=== PATIENT | male | born 1955 | race Caucasian/White ===

== ENCOUNTER 2017-11-18 03:12 | Emergency (ER) | payer OTHER ==
[~2017-11-18] VITALS: Ht 180.3 cm; Wt 113.4 kg
[~2017-11-18 03:12] MED LIST: ASPIR 8181 MG PO; BRILINTA90 MG PO; COREG 25 MG TAB25 MG PO; KEFLEX500 MG PO; LIPITOR80 MG PO
--- NOTE | 2017-11-18 03:19 | ED DYSPNEA/ASTHMA COMPLAINT ---
History of Present Illness General Chief Complaint: General Adult Stated Complaint: "COUGHING UP BLOOD" Source: patient Exam Limitations: no limitations Vital Signs & Intake/Output Vital Signs & Intake/Output Vital Signs Date Time Temp Pulse Resp B/P B/P Pulse O2 O2 Flow FiO2 Mean Ox Delivery Rate 11/18 0506 98.2 62 18 132/67 95 Room Air 11/18 0317 98.0 66 18 150/79 95 Room Air Allergies Coded Allergies: NO KNOWN ALLERGIES (10/29/13) Reconcile Medications Amoxicillin/Potassium Clav (Augmentin 875-125 Tablet) 875 MG-125 MG TABLET 1 TAB PO BID BRONCHITIS Aspirin (Ecotrin) 81 MG TABLET.DR 1 TAB PO DAILY HEART HEALTH (Reported) Atorvastatin (Atorvastatin Calcium) 80 MG TABLET 80 MG PO DAILY CHOLESTEROL ( Reported) Carvedilol (Coreg) 25 MG TABLET 25 MG PO DAILY HEART (Reported) Cephalexin (Keflex) 500 MG CAP 1 TAB PO BID INFN Ticagrelor (Brilinta) 90 MG TABLET 90 MG PO DAILY BLOOD THINNER (Reported) Triage Nurses Notes Reviewed? yes Onset: Abrupt Duration: hour(s): Timing: recent history Severity: moderate Activities at Onset: none Modifying Factors: Worsens With: movement. Associated Symptoms: cough HPI: 62 yo gentleman h/o stage iv renal cell cancer, with mets to lungs presents with several episodes of hemoptysis 30 minutes prior to presentation. "But now it stopped and I feel fine... I wouldn't have come." He notes the bloody episodes are small clots, mixed with phlegm, without fever, chills, wheeze. He is tolerating his chemo well. He is otherwise well. Past History Travel History Traveled to [place] past 21 day No Medical History Any Pertinent Medical History? see below for history Respiratory: lung mets from renal cell carcinoma primary Renal: right renal call carcinoma Surgical History Surgical History: right nephrectomy 2017 Psychosocial History What is your primary language Czech Family History Hx Contributory? No Review of Systems Review of Systems Constitutional: Reports: no symptoms. EENTM: Reports: no symptoms. Respiratory: Reports: no symptoms. Cardiovascular: Reports: no symptoms. GI: Reports: no symptoms. Genitourinary: Reports: no symptoms. Musculoskeletal: Reports: no symptoms. Skin: Reports: no symptoms. Neurological/Psychological: Reports: no symptoms. Hematologic/Endocrine: Reports: no symptoms. Immunologic/Allergic: Reports: no symptoms. All Other Systems: Reviewed and Negative Physical Exam Physical Exam Respiratory: see below Comments: Physical Exam Physical Exam General Appearance: well developed/nourished, no apparent distress Head: atraumatic, normal appearance Eyes: Bilateral: normal appearance. Ears, Nose, Throat: normal pharynx, normal ENT inspection Neck: normal inspection, supple, full range of motion Respiratory: mild rhonchi on right, chest non-tender, no respiratory distress, quiet respiration, lungs clear Cardiovascular: regular rate/rhythm Gastrointestinal: normal bowel sounds, soft, non-tender, no organomegaly Back: normal inspection, normal range of motion Extremities: normal inspection, normal capillary refill, normal range of motion, no edema Neurologic/Psych: no motor/sensory deficits, awake, alert, oriented x 3 Skin: intact, normal color, warm/dry Core Measures ACS in differential dx? No CVA/TIA Diagnosis No Sepsis Present: No Sepsis Focused Exam Completed? No Progress Differential Diagnosis: asthma, bronchitis, PE vs other. Plan of Care: Orders Procedure Date/time Status PARTIAL THROMBOPLASTIN TIME 11/18 332 Complete PROTHROMBIN TIME 11/18 332 Complete TROPONIN LEVEL 11/19 331 Complete COMPREHENSIVE METABOLIC PANEL 11/18 033 Complete CBC WITHOUT DIFFERENTIAL 11/19 331 Complete EKG 11/19 331 Active Laboratory Tests 11/18/17 0413: Anion Gap 12, Estimated GFR > 60, BUN/Creatinine Ratio 13.3, Glucose 116 H, Calcium 9.8, Total Bilirubin 0.6, AST 23, ALT 46, Alkaline Phosphatase 66, Troponin I 0.02, Total Protein 6.7, Albumin 3.9, Globulin 2.8, Albumin/Globulin Ratio 1.4, PT 10.0, INR 0.92, APTT 37, CBC w Diff NO MAN DIFF REQ, RBC 4.68 L, MCV 94.4 H, MCH 31.1 H, MCHC 32.9 L, RDW 13.9, MPV 7.8, Gran % 60.0, Lymphocytes % 23.0, Monocytes % 13.1 H, Eosinophils % 3.4, Basophils % 0.5, Absolute Granulocytes 4.6, Absolute Lymphocytes 1.8, Absolute Monocytes 1.0 H, Absolute Eosinophils 0.3, Absolute Basophils 0 Diagnostic Imaging: Viewed by Me: Radiology Read. Discussed w/RAD: Radiology Read. Radiology Impression: PATIENT: STACI TOLBERT JR PRESENT AGE: 62 PATIENT ACCOUNT NO: [id number] : 54 LOCATION: [facility] ORDERING PHYSICIAN: Jim Gutierrez MD SERVICE DATE: 11/18/17 EXAM TYPE: RAD - XRY-CHEST XRAY, TWO VIEWS EXAMINATION: CHEST 2 VIEWS CLINICAL INFORMATION: Hemoptysis. COMPARISON: August 24, 2017. TECHNIQUE: PA and lateral views of the chest were obtained. FINDINGS: The cardiac silhouette is not enlarged. The mediastinal and hilar contours are unremarkable. There are neither pleural effusions nor pneumothoraces. Several nodules are again noted bilaterally. The largest on the right overlies the lower lobe measuring approximately 2 cm. The largest on the left is also present within the lower lung zone measuring approximately 1.8 cm. There are no consolidations. The osseous structures are stable. IMPRESSION: No evidence for acute airspace disease. Multiple bilateral pulmonary nodules. The largest on each side measure larger than on the prior exam, though direct comparison between plain film and CT measurements is limited. With the history of a right renal mass and presumed renal cancer, progression in suspected metastatic disease cannot be excluded. DICTATED BY: Deshaun Womack MD DATE/TIME DICTATED:11/18/17413 OPINION POLLS SURVEY WORKER:REANAN DATE/TIME TRANSCRIBED:11/18/17413 CONFIDENTIAL, DO NOT COPY WITHOUT APPROPRIATE AUTHORIZATION. <Electronically signed in Other Vendor System> SIGNED BY: Deshaun Womack MD 11/18/17 0420 Initial ED EKG: nsr, pvc, borderline left axis Departure Departure Disposition: HOME OR SELF CARE Condition: Stable Clinical Impression Primary Impression: Hemoptysis Secondary Impressions: Bronchitis Referrals: Kaveh CHIANG,Jb Bender (PCP/Family) Departure Forms: Customer Survey General Discharge Information Prescriptions: Current Visit Scripts Amoxicillin/Potassium Clav (Augmentin 875-125 Tablet) 1 TAB PO BID #20 TAB Comments 11/18/17, 5:04am... discussed at length with patient and spouse... No hemoptysis in the ED. He notes that he is feeling fine. Discussed ct scan w/ IV contrast. He declines, stating that he has only 1 kidney. He has no shortness of breath... Will give abx for possible obstructive-type bronchitis... pt will hold aspirin x 1 day (he is no longer on brilinta)... pt to return if not feeling better. Critical Care Note Critical Care Note Critical Care Time: non-applicable
[2017-11-18 04:19] LABS: ABSOLUTE BASOPHIL COUNT 0 /CUMM (0.0-0.2); ABSOLUTE EOSINOPHIL COUNT 0.3 /CUMM (0.0-0.7); ABSOLUTE GRANULOCYTE CT 4.6 /CUMM (1.4-6.5); ABSOLUTE LYMPH COUNT 1.8 /CUMM (1.2-3.4); BASOPHIL % 0.5 % (0.0-2.0); EOSINOPHIL % 3.4 % (0-5); HEMATOCRIT 44.2 % (42-52); MEAN CORPUSCULAR HGB 31.1 PG (27.0-31.0); MEAN CORPUSCULAR HGB CONC 32.9 G/DL (33.0-37.0); MEAN CORPUSCULAR VOLUME 94.4 FL (80.0-94.0); MEAN PLATELET VOLUME 7.8 FL (7.4-10.4); PLATELET COUNT 264 /CUMM (130-400); RBC DISTRIBUTION WIDTH 13.9 % (11.5-14.5); RED BLOOD CELL CT 4.68 /CUMM (4.70-6.10); WHITE BLOOD CELL COUNT 7.7 /CUMM (4.8-10.8)
--- NOTE | 2017-11-18 04:20 | RADIOLOGY REPORT ---
EXAMINATION: CHEST 2 VIEWS CLINICAL INFORMATION: Hemoptysis. COMPARISON: August 24, 2017. TECHNIQUE: PA and lateral views of the chest were obtained. FINDINGS: The cardiac silhouette is not enlarged. The mediastinal and hilar contours are unremarkable. There are neither pleural effusions nor pneumothoraces. Several nodules are again noted bilaterally. The largest on the right overlies the lower lobe measuring approximately 2 cm. The largest on the left is also present within the lower lung zone measuring approximately 1.8 cm. There are no consolidations. The osseous structures are stable. IMPRESSION: No evidence for acute airspace disease. Multiple bilateral pulmonary nodules. The largest on each side measure larger than on the prior exam, though direct comparison between plain film and CT measurements is limited. With the history of a right renal mass and presumed renal cancer, progression in suspected metastatic disease cannot be excluded.
[2017-11-18] MEDS ORDERED: AUGMENTIN 875-1 EACH PO (04:35)
[2017-11-18 04:36] LABS: PTT 37 SEC (25-37)
[2017-11-18 05:06] VITALS: BP 132/67
== END 2017-11-18 05:12 ==
LOC: ERH 03:12
PROVIDERS: Pediatrics
DX: R04.2 Hemoptysis (principal); J40 Bronchitis, not specified as acute or chronic
CPT/HCPCS: 71046; 93005; 93010; J3490

== ENCOUNTER 2017-12-18 13:15 | Observation (INO) | payer OTHER ==
[~2017-12-18] VITALS: Ht 180.3 cm; Wt 117.9 kg
[~2017-12-18 13:15] MED LIST changes: +AUGMENTIN 875-1 EACH PO
--- NOTE | 2017-12-18 13:22 | ED NEURO DEFICIT/STROKE ---
History of Present Illness General Chief Complaint: General Adult Stated Complaint: BIBA STROKE ALERT Source: EMS, Exam Limitations: clinical condition Vital Signs & Intake/Output Vital Signs & Intake/Output Vital Signs Date Time Temp Pulse Resp B/P B/P Pulse O2 O2 Flow FiO2 Mean Ox Delivery Rate 12/18 1333 98.3 68 20 158/77 96 Room Air Allergies Coded Allergies: NO KNOWN ALLERGIES (10/29/13) Reconcile Medications Amoxicillin/Potassium Clav (Augmentin 875-125 Tablet) 875 MG-125 MG TABLET 1 TAB PO BID BRONCHITIS Aspirin (Ecotrin) 81 MG TABLET.DR 1 TAB PO DAILY HEART HEALTH (Reported) Atorvastatin (Atorvastatin Calcium) 80 MG TABLET 80 MG PO DAILY CHOLESTEROL ( Reported) Carvedilol (Coreg) 25 MG TABLET 25 MG PO DAILY HEART (Reported) Cephalexin (Keflex) 500 MG CAP 1 TAB PO BID INFN Ticagrelor (Brilinta) 90 MG TABLET 90 MG PO DAILY BLOOD THINNER (Reported) Triage Nurses Notes Reviewed? yes HPI: Patient presents for evaluation of sudden onset of left-sided weakness that occurred about 12:30 this afternoon. Patient had complained of a headache at about 5:00 this morning. According to EMS he has a history of metastatic renal cancer status post nephrectomy. History is limited as the patient tends to lie on the EMS stretcher with his eyes closed. He does respond to vigorous tactile stimuli however. He follows commands inconsistently. Past History Medical History Any Pertinent Medical History? see below for history Cardiovascular: [place] 4 YRS AGO Respiratory: lung mets from renal cell carcinoma primary Renal: right renal call carcinoma Endocrine: DM-II Cancer(s): lung cancer, renal cancer Surgical History Surgical History: right nephrectomy 2017 Psychosocial History What is your primary language Central African Family History Hx Contributory? No Review of Systems Review of Systems Constitutional: Reports: no symptoms. EENTM: Reports: no symptoms. Respiratory: Reports: no symptoms. Cardiovascular: Reports: no symptoms. GI: Reports: no symptoms. Genitourinary: Reports: no symptoms. Musculoskeletal: Reports: no symptoms. Skin: Reports: no symptoms. Neurological/Psychological: Reports: see HPI. Hematologic/Endocrine: Reports: no symptoms. Immunologic/Allergic: Reports: no symptoms. All Other Systems: Reviewed and Negative Comments pt unable to provide ros. Physical Exam Physical Exam General Appearance: see below Cranial Nerves: see below Comments: gen: wn, wd, no acute resp distress head: nc/at eyes: normal inspection ears: normal inspection nose: normal inspection throat/mouth: moist mucosa neck: no goiter heart: rrr, no mrg lungs: cta bilaterally with normal air entry chest: nt abd: soft, nd, normal bowel sounds, nontender back: normal range of motion ext: normal range of motion, no cyanosis, clubbing or edema skin: warm and dry circulatory: normal radial pulses neuro: limited exam as pt is not cooperative, moves all extremities, unable to assess speech psych: unable to assess Core Measures CVA/TIA Diagnosis: Yes Sepsis Present: No Sepsis Focused Exam Completed? No Progress Differential Diagnosis: intracranial Hem., intracranial mass/tumor, seizure disorder, stroke, subarachnoid Hem. Plan of Care: Orders Procedure Date/time Status Telemetry/Diagnostic Imaging Manager 12/18 132 Active PARTIAL THROMBOPLASTIN TIME 12/18 1322 Active PROTHROMBIN TIME 12/18 1322 Active COMPREHENSIVE METABOLIC PANEL 12/18 132 Active CBC WITHOUT DIFFERENTIAL 12/18 132 Active EKG 12/18 132 Active Initial ED EKG: none Comments: 13:29 TWO INTERPARENCHYMAL BLEEDS WITH MIDDLESHIFT AND UNCAL HERNIATION. 12/18/2017 1:37:46 PM I have updated the patient's family and they have provided documentation that he is DNR/DNI would not want heroic measures. I am attempting to contact the neurosurgeon regarding any potential interventions. I have notified the family that this is likely a fatal event. 12/18/2017 1:44:17 PM patient's case discussed with Dr. Park who will review the CT report. 12/18/2017 1:52:[address] Park states that although the posterior bleeding is amenable to surgical intervention it is unclear if this would alter the patient' s future course. She will talk to Dr. Gerber. 12/18/2017 2:01:[address] Gerber has advised me that he feels the patient should be placed in hospice care after speaking with the patient's . Departure Departure Disposition: STILL A PATIENT Condition: Stable Clinical Impression Primary Impression: Cerebral hemorrhage Referrals: Kaveh CHIANG,Jb Bender (PCP/Family) Departure Forms: Customer Survey General Discharge Information Critical Care Note Critical Care Note Critical Care Time: 30-74 min
--- NOTE | 2017-12-18 13:39 | CT SCAN REPORT ---
CT HEAD WITHOUT IV CONTRAST INDICATION: Headache and left-sided weakness. COMPARISON: Head CT 11/15/2016. TECHNIQUE: Multidetector CT acquisitions of the head was obtained without IV contrast. FINDINGS: Large intraparenchymal hemorrhage involving portions of the right parietal, occipital, and temporal lobe that measures up to 5.6 cm AP by 3.5 cm TV. There is surrounding parenchymal edema, local sulcal effacement, and partial effacement of the right lateral ventricle posteriorly. There is also an intraparenchymal hemorrhage anteriorly within the right frontal lobe measuring up to 2.3 cm in size with surrounding edema and local cerebral sulcal effacement. There is a 0.9 cm leftward midline shift and there is right-sided uncal herniation with effacement of the right paramesencephalic cistern and slight mass effect on the midbrain. Other than at the sites of hemorrhage, greater white matter differentiation is maintained. There is likely intraventricular hemorrhage within the third ventricle and the posterior aspect of the right lateral ventricle. No hydrocephalus. No significant soft tissue abnormality. No acute osseous abnormality. The paranasal sinuses and the mastoid air cells are well-aerated. Severe degenerative changes involving the left TMJ. IMPRESSION: Large up to 5.6 cm intraparenchymal hemorrhage at the junctions of the right parietal, occipital, and temporal lobes, and smaller 2.3 cm intraparenchymal hemorrhage more anteriorly within the right frontal lobe, both with surrounding edema. Mass effect includes local cerebral sulcal effacement, 9 mm leftward midline shift, right-sided uncal herniation with slight mass effect on the midbrain, and partial effacement of the posterior aspect of the right lateral ventricle. There is likely intraventricular hemorrhage within the third ventricle and the posterior aspect of the right lateral ventricle. No hydrocephalus. Critical findings discussed with Dr. Ramos at 1:30 PM on 12/18/2017.
--- NOTE | 2017-12-18 16:11 | History & Physical ---
General Information and HPI MD Statement: I have seen and personally examined STACI TOLBERT JR and documented this H& P. The patient is a 62 year old M who presented with a patient stated chief complaint of [STROKE ALERT, WEKANESS]. Source of Information: family History of Present Illness: This is a 62-year-old male with past medical history of myocardial infarction, renal cell carcinoma (primary) with metastasis into the lung, type 2 diabetes mellitus, previous right nephrectomy in 2017, came in with sudden onset of left- sided weakness that occurred around 12:30 PM on the day of presentation. Apparently the patient has a history of metastatic renal cell cancer status post nephrectomy (2017) follows up with Dr. Romero is his heme oncologist, came in with chief complaint of headache that started around 5 AM on the day of presentation. When he came he was not able to contribute a lot to history taking, he was lying on the EMS stretcher with his eyes closed only responding to vigorous tactile stimuli and following commands inconsistently. The ER doctors discussion with the family, they provided documentation that he is a DNR/DNI and did not want any heroic measures. CT head showed 2 intraparenchymal bleed with midline shift and uncal herniation. The ER doctor talked with Dr. Ndiaye who did think that the posterior bleeding was amenable to surgical intervention, however as per the family after discussion with the ER doctor, attending Dr. Arango as well as per advice of Dr. Romero they wanted patient to be in hospice care and did not want any heroic measures or any major interventions. Allergies/Medications Allergies: Coded Allergies: NO KNOWN ALLERGIES (10/29/13) Home Med list Amoxicillin/Potassium Clav (Augmentin 875-125 Tablet) 875 MG-125 MG TABLET 1 TAB PO BID BRONCHITIS Aspirin (Ecotrin) 81 MG TABLET. 1 TAB PO DAILY HEART HEALTH (Reported) Atorvastatin (Atorvastatin Calcium) 80 MG TABLET 80 MG PO DAILY CHOLESTEROL ( Reported) Carvedilol (Coreg) 25 MG TABLET 25 MG PO DAILY HEART (Reported) Cephalexin (Keflex) 500 MG CAP 1 TAB PO BID INFN Ticagrelor (Brilinta) 90 MG TABLET 90 MG PO DAILY BLOOD THINNER (Reported) Compliance With Home Meds: FAIR Past History Travel History Traveled to [place] past 21 day No Medical History Cardiovascular: [place] 4 YRS AGO Respiratory: lung mets from renal cell carcinoma primary Renal: right renal cell carcinoma Endocrine: DM-II Blood Disorders: NONE Cancer(s): lung cancer, renal cancer RECORD SEARCHER/Reproductive: NONE Surgical History Surgical History: right nephrectomy 2017 Past Family/Social History Psychosocial History ETOH Use: 5 Illicit Drug Use: U Review of Systems Review of Systems Constitutional: Reports: see HPI. Exam & Diagnostic Data Last 24 Hrs of Vital Signs/I&O Vital Signs Date Time Temp Pulse Resp B/P B/P Pulse O2 O2 Flow FiO2 Mean Ox Delivery Rate 12/18 1610 93 20 125/75 95 Room Air 12/18 1333 Room Air Room Air 12/18 1333 98.3 68 20 158/77 96 Room Air Intake & Output 12/18 1600 12/18 0800 12/18 0000 Intake Total Output Total Balance Patient 117.934 kg Weight Weight Reported by Patient Measurement Method Physical Exam General Appearance Alert, Oriented X3, Cooperative Skin No Rashes, No Breakdown, No Significant Lesion HEENT Atraumatic, PERRLA, EOMI Neck Supple, No JVD Cardiovascular Normal S1, Normal S2, No Murmurs Abdomen Normal Bowel Sounds Extremities No Clubbing, No Cyanosis, No Edema, Normal Pulses Vascular Normal Pulses Assessment/Plan Assessment: This is a 62-year-old male with past medical history of myocardial infarction, renal cell carcinoma (primary) with metastasis into the lung, type 2 diabetes mellitus, previous right nephrectomy in 2017, came in with sudden onset of left- sided weakness that occurred around 12:30 PM on the day of presentation. Apparently the patient has a history of metastatic renal cell cancer status post nephrectomy (2016) follows up with Dr. Romero is his heme oncologist, came in with chief complaint of headache that started around 5 AM on the day of presentation. When he came he was not able to contribute a lot to history taking, he was lying on the EMS stretcher with his eyes closed only responding to vigorous tactile stimuli and following commands inconsistently. The ER doctors discussion with the family, they provided documentation that he is a DNR/DNI and did not want any heroic measures. CT head showed 2 intraparenchymal bleed with midline shift and uncal herniation. The ER doctor talked with Dr. Ndiaye who did think that the posterior bleeding was amenable to surgical intervention, however as per the family after discussion with the ER doctor, attending Dr. Arango as well as per advice of Dr. Romero they wanted patient to be in hospice care and did not want any heroic measures or any major interventions. We will admit the patient to general medicine floor for hospice evaluation. Vitals on admission temperature of 98.3, pulse of 68, respiration of 20, blood pressure 158/77, he was saturating 96% on room air. Head CT showed following findings. IMPRESSION: Large up to 5.6 cm intraparenchymal hemorrhage at the junctions of the right parietal, occipital, and temporal lobes, and smaller 2.3 cm intraparenchymal hemorrhage more anteriorly within the right frontal lobe, both with surrounding edema. Mass effect includes local cerebral sulcal effacement, 9 mm leftward midline shift, right-sided uncal herniation with slight mass effect on the midbrain, and partial effacement of the posterior aspect of the right lateral ventricle. There is likely intraventricular hemorrhage within the third ventricle and the posterior aspect of the right lateral ventricle. No hydrocephalus. plan * Family does not want any heroic measures, the patient is DNR/DNI, and we will obtain hospice evaluation to keep the patient comfortable. * We will keep him off all his home medications. * IV morphine, IV Ativan and IV Tylenol as needed to keep the patient comfortable. As Ranked By This Provider Problem List: 1. Intraventricular hemorrhage 2. Lung metastasis 3. Metastasis from malignant neoplasm of kidney 4. Renal cell cancer Core Measures/Misc (01/08) Acute Coronary Syndrome ACS Diagnosis: No Congestive Heart Failure Congestive Heart Failure Diagnosis No Cerebrovascular Accident CVA/TIA Diagnosis: No VTE (View Protocol) VTE Risk Factors Other No Mechanical VTE Prophylaxis d/t Other No VTE Pharm Prophylaxis d/t Other Sepsis (View protocol) Sepsis Present: No If YES complete Sepsis Event Note If YES complete Sepsis Event Note Resident Review Statement Resident Statement: admitted by resident
--- NOTE | 2017-12-18 16:18 | PN- Att Addend ---
Attending MD Review Statement Attending Statement Attending MD Statement: examined this patient, discuss w/resident/PA/CAR STEREO INSTALLER, agreed w/resident/PA/CAR STEREO INSTALLER, discussed with family, reviewed EMR data (avail), discussed w/ case mgmt Attending Assessment/Plan: 62 yr old male with pmh of obesity and renal cancer ( diagnosed in dec 2016 with known mets to lungs and s/p rt side nephrectomy ) f/u with Dr Russo , cad s/p 2 stents in 2013 on baby asprin at home, severe aortic stenosis who woke up this am around 5 am with rt side headache and started vomiting . Pts headache continued to get worse and pt was brought to the ER for further eval and was found to have 2 large Rt ICH on CT head . The situation was d/w pts family and it was decided that they would like to make him comfortable and pursue comfort care measures only and no heroic measures. pt on exam is yawning and pupils are nonresponsive to light both sides. pt has a systolic ejection murmur on exam and b/l 1 + lower extremity edema. Pt will be placed in observation status with comfort measures and hospice will be consulted. Will put pt on prn morphine for pain and prn ativan for seizures. Will give prn tylenol for fever. d/w pts family the care plan.
[2017-12-18 18:55] VITALS: BP 180/80
[2017-12-19 06:00] VITALS: BP 144/78
--- NOTE | 2017-12-19 07:27 | PN- Housestaff ---
Jaime Culleni 12/19/17 0727: Subjective Follow-up For: ICH with unacal herniation Pending hospice evaluation Subjective: Patient was surrounded by family at the bedside. He was comfortably sleeping, yawning and snoring at times. The family is aware of the prognosis and want only comfort measures for the patient. The family do not want intervention of any kind and have refused blood draws. They want to consult hospice for further mangement of the patient. Review of Systems Constitutional: Reports: no symptoms. Objective Last 24 Hrs of Vital Signs/I&O Vital Signs Date Time Temp Pulse Resp B/P B/P Pulse O2 O2 Flow FiO2 Mean Ox Delivery Rate 12/19 1107 99.9 12/19 0600 98.2 90 20 144/78 91 Room Air 12/18 1855 98.2 85 16 180/80 90 12/18 1747 99.3 85 20 170/85 94 Room Air 12/18 1610 93 20 125/75 95 Room Air Intake & Output 12/19 1600 12/19 0800 12/19 0000 Intake Total 0 100 Output Total Balance 0 100 Intake, IV 100 Intake, Oral 0 0 Patient 260 lb Weight Physical Exam General Appearance: sleeping comfortably Cardiovascular: Regular Rate, Normal S1, Normal S2 Lungs: Clear to Auscultation, Normal Air Movement Abdomen: Soft Extremities: Normal Pulses Assessment/Plan Assessment: This is a 62-year-old male with past medical history of myocardial infarction, renal cell carcinoma (primary) with metastasis into the lung, type 2 diabetes mellitus, previous right nephrectomy in 2017, came in with sudden onset of left- sided weakness that occurred around noon yesterday. CT head showed 2 intraparenchymal bleed with midline shift and uncal herniation. The family after extensive discussion with the medical team yesterday decided to opt for hospice care for the patient. The patient was evaluated by hospice in the morning today. Would follow up recomemendations. Family does not want any heroic measures, the patient is DNR/DNI, and we will obtain hospice evaluation to keep the patient comfortable. * We will keep him off all his home medications. * IV morphine, IV Ativan and IV Tylenol as needed to keep the patient comfortable. Problem List: 1. Intraventricular hemorrhage 2. Lung metastasis 3. Metastasis from malignant neoplasm of kidney 4. Renal cell cancer Pain Ratin Pain Location: none Pain Goal: Remain pain free Pain Plan: pathway Tomorrow's Labs & Rationales: none Kami Fall 12/19/17 1146: Attending MD Review Statement Attending Statement Attending MD Statement: examined this patient, discuss w/resident/PA/SPECIAL SERVICES AGENT, agreed w/resident/PA/SPECIAL SERVICES AGENT, discussed with family, reviewed EMR data (avail), discussed with nursing, discussed with case mgmt, reviewed images, amended to note Attending Assessment/Plan: Pts with multiple medical problems in past found to have 2 large Rt ICH on CT head . Pt on exam is yawning and pupils are nonresponsive to light both sides. pt has a systolic ejection murmur on exam and b/l 1 + lower extremity edema. Continue observation status with comfort measures and follow hospice recs . d/w pts family the care plan.
--- NOTE | 2017-12-19 15:47 | Discharge Summary ---
Visit Information Visit Dates Admission Date: 12/19/17 Discharge Date: 12/20/17 Hospital Course Course Attending Physician: Kami Fall MD Primary Care Physician: Jb Linn MD Hospital Course: , with PMH of metastatic RCC was admitted to the [facility] service after he suffered form an intraparenchymal hemorrhage with uncal herniation. The patient was minimally responsive in the ER but became essentially unresponsive as time progressed. He was yawning and sleeping peacefully when he was last assessed. Plan of care was discussed with the family in the ED. The family refused any intervention and opted for comfort evaluation for the patient. The patient was accepted by hospice who took over care on 12/19. Allergies: Coded Allergies: NO KNOWN ALLERGIES (10/29/13) Disposition Summary Disposition Principal Diagnosis: Intraventricular hemorrhage with uncal herniation Additional Diagnosis: none Discharge Disposition: hospice - medical facilit Discharge Instructions General Discharge Information Code Status: Do Not Resucitate/Intubat Patient's Diet: none Patient's Activity: none Follow-Up Instructions/Appts: Care taken over by hospice Copies To: hospice Attending MD Review Statement Documenting Attending: Kami Fall MD Other Findings: Pts with multiple medical problems in past found to have 2 large Rt ICH on CT head . Pt on exam is yawning and pupils are nonresponsive to light both sides. pt has a systolic ejection murmur on exam and b/l 1 + lower extremity edema. Continue observation status with comfort measures and follow hospice recs . d/w pts family the care plan.
== END 2017-12-19 12:59 | disposition hospice, home (50) ==
LOC: ERH 13:15 → ERHI 15:54 → 2NA 15:54 → ENRESERV 17:37 → ENTRNSPT 18:16 → EDTRNSPT 18:18 → EDTRNSPTSTS 18:18 → 2NA 18:38 → CMPTRNSPT 18:45 → 2NA 12-19 08:10
DX: I61.8 Other nontraumatic intracerebral hemorrhage (principal); Z51.5 Encounter for palliative care; C64.9 Malignant neoplasm of unspecified kidney, except renal pelvis; C78.00 Secondary malignant neoplasm of unspecified lung; E11.9 Type 2 diabetes mellitus without complications; Z79.82 Long term (current) use of aspirin; E66.9 Obesity, unspecified; I35.0 Nonrheumatic aortic (valve) stenosis; G93.5 Compression of brain
CPT/HCPCS: 6030; 93005; 93010; 96374; 96375; 96376; 99291; G0378; J0131; J1200; J2405

== ENCOUNTER 2017-12-19 13:00 | Inpatient (IN) | payer OTHER ==
--- NOTE | 2017-12-19 13:45 | History & Physical ---
General Information and HPI Chief Complaint: Admit to hospice Source of Information: family, old records Exam Limitations: not alert/orientated, clinical condition Associated Symptoms: Fever, labored respirations, restlessness History of Present Illness: Pt. is a 62 y.o. male with severe aortic stenosis, renal cell ca with metastasis to lungs who was admitted yesterday with 2 large intraparenchymal hemorrhages with surrounding edema, midline shift and uncal herniation. Pupils are unresponsive. Phone consultation with neurosurgeon in ER indicated that bleeding could be amenable to surgery but it was unclear if this would alter pt outcome. After neurosurgery discussed with oncology, it was felt hospice was best course, given pt prognosis and pt's advance directive. He has been receiving morphine every 2 hours and ativan every 4 hours overnight. 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 Pt's wishes were for no heroic measures in event of major illness/injury. Pt. unable to communicate, has labored respirations and becomes restless. reports brief eye opening at times without focusing, periodic limb movements. Nursing reports incontinence of urine, fever, diaphoresis. 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 Exam & Diagnostic Data Last 24 Hrs of Vital Signs/I&O T-98.2; HR-90; RR-20; BP-144/78 O2 sat 91% on RA Repeat T-99.9 at 11am Physical Exam General Appearance No Acute Distress, Lying in bed sleeping, intermittent snoring, brief periods of apnea Skin diaphoretic HEENT Atraumatic, dry mucous membranes Cardiovascular Regular Rate, Normal S1, Normal S2, murmur I-II/ aortic area Lungs Normal Air Movement, labored at times, snoring, periodic brief apnea Abdomen obese, soft, decreased bowel sounds Neurological pupils unresponsive bilat.; not responsive to verbal/tactile stimuli; periodic movements of right fingers, right foot-not purposeful; Plantar reflex upgoing left, downgoing right Extremities trace bipedal edema, no mottling Last 24 Hrs of Labs/Bill: No labs done Diagnostic Data Other Results Head CT 12/18/17: IMPRESSION: Large up to 5.6 cm intraparenchymal hemorrhage at the junctions of the right parietal, occipital, and temporal lobes, and smaller 2.3 cm intraparenchymal hemorrhage more anteriorly within the right frontal lobe, both with surrounding edema. Mass effect includes local cerebral sulcal effacement, 9 mm leftward midline shift, right-sided uncal herniation with slight mass effect on the midbrain, and partial effacement of the posterior aspect of the right lateral ventricle. There is likely intraventricular hemorrhage within the third ventricle and the posterior aspect of the right lateral ventricle. No hydrocephalus. Critical findings discussed with Dr. Ramos at 1:30 PM on 12/18/2017. Assessment/Plan Assessment: Mr. Miller is a 62 y.o. male with metastatic renal cell carcinoma who suffered intraparenchymal hemorrhage x 2 with edema, midline shift, uncal herniation and is now admitted to inpatient hospice due to his poor prognosis and previously known wishes for no heroic/invasive measures in setting where recovery was doubtful. Plan: Start morphine drip at 1mg/hr after 2mg bolus IV (as pt has been requiring every 2 hour dosing) for easier titration of medication for dyspnea/pain Ativan 1mg every 6 hours and every 3 hours as needed for anxiety/restlessness As needed scopolamine and Robinul for secretions APAP 650 mg MA as needed for fever Artificial saliva spray for dry mouth as needed
[2017-12-19 14:45] VITALS: BP 122/62
--- NOTE | 2017-12-19 15:47 | Discharge Summary ---
Visit Information Visit Dates Admission Date: 12/19/17 Discharge Date: 12/20/17 Hospital Course Course Attending Physician: Kami Fall MD Primary Care Physician: Jb Linn MD Hospital Course: , with PMH of metastatic RCC was admitted to the [facility] service after he suffered form an intraparenchymal hemorrhage with uncal herniation. The patient was minimally responsive in the ER but became essentially unresponsive as time progressed. He was yawning and sleeping peacefully when he was last assessed. Plan of care was discussed with the family in the ED. The family refused any intervention and opted for comfort evaluation for the patient. The patient was accepted by hospice who took over care on 12/19. Allergies: Coded Allergies: NO KNOWN ALLERGIES (10/29/13) Disposition Summary Disposition Principal Diagnosis: Intraventricular hemorrhage with uncal herniation Additional Diagnosis: none Discharge Disposition: hospice - medical facilit Discharge Instructions General Discharge Information Code Status: Do Not Resucitate/Intubat Patient's Diet: none Patient's Activity: none Follow-Up Instructions/Appts: Care taken over by hospice Copies To: hospice
[2017-12-20 05:40] VITALS: BP 126/86
--- NOTE | 2017-12-20 14:21 | Discharge Summary ---
Visit Information Visit Dates Admission Date: 12/19/17 Discharge Date: 12/20/17 Hospital Course Course Attending Physician: Kami Fall MD Primary Care Physician: Jb Linn MD Hospital Course: Mr. Miller is a 62 y.o. male with metastatic renal cell carcinoma who suffered intraparenchymal hemorrhage x 2 with edema, midline shift, uncal herniation, admitted to inpatient hospice due to his poor prognosis and previously known wishes for no heroic/invasive measures in setting where recovery was doubtful. He was started on a morphine drip and scheduled ativan for labored respirations and pain, anxiety/restlessness and kept comfortable until he today with family at bedside. Allergies: Coded Allergies: NO KNOWN ALLERGIES (10/29/13) Disposition Summary Disposition Principal Diagnosis: Intraparenchymal hemorrhage, acute Additional Diagnosis: Renal cell carcinoma with metastases to lung Discharge Disposition: Discharge Instructions General Discharge Information Code Status: Hospice Patient's Diet: N/A Patient's Activity: N/A Follow-Up Instructions/Appts: N/A Copies To: Kaveh CHIANG,Jb Bender Attending MD Review Statement Documenting Attending: Kami Fall MD
== END 2017-12-20 11:46 | disposition expired | DRG 64 ==
LOC: 2NA 13:00
DX: I61.9 Nontraumatic intracerebral hemorrhage, unspecified (principal); G93.6 Cerebral edema; G93.5 Compression of brain; C78.02 Secondary malignant neoplasm of left lung; C78.01 Secondary malignant neoplasm of right lung; Z51.5 Encounter for palliative care; I35.0 Nonrheumatic aortic (valve) stenosis; Z85.528 Personal history of other malignant neoplasm of kidney; Z90.5 Acquired absence of kidney; E11.9 Type 2 diabetes mellitus without complications; I25.2 Old myocardial infarction; Z87.891 Personal history of nicotine dependence
CPT/HCPCS: 2NAP; J2270